=== PATIENT | male | born 1930 | race Caucasian/White ===

== ENCOUNTER 2018-05-05 18:03 | Emergency (ER) | payer MEDICARE ==
[~2018-05-05] VITALS: Ht 177.8 cm; Wt 73.0 kg
[~2018-05-05 18:03] MED LIST: ASPI-515 PO; CALC0.5C9 PO; CHOL100012 PO; EZET10TA18 PO; MIDO5TAB9 PO; NPH,100V INJ; NPH,100V5 INJ; TAMS-11 PO
[2018-05-05 18:20] VITALS: BP 101/47
--- NOTE | 2018-05-05 18:30 | NUR ---
Dr. Jurado at bedside to evaluate pt.
--- NOTE | 2018-05-05 18:41 | NUR ---
Labs drawn. EDT at bedside for EKG.
--- NOTE | 2018-05-05 18:50 | NUR ---
RECEIVED BS REPORT FROM ANNE-MARIE AUGUSTINE TO ASSUME PT. CARE. PT. RESTING ON GUNEY WITH EYES CLOSED. NADN. RESP EVEN, NON-LABORED. CONTINUOUS PULSE OX AND B/P MONITORS IN PLACE.
[2018-05-05 18:51] LABS: BASOPHILS # (AUTO) 0.04 x10^3/uL (0-0.1); BASOPHILS % (AUTO) 1 % (0-1); EOSINOPHILS # (AUTO) 0.21 x10^3/uL (0-0.4); EOSINOPHILS % (AUTO) 3 % (1-7); LYMPHOCYTES # (AUTO) 1.59 x10^3/uL (1-3.4); LYMPHOCYTES % (AUTO) 23 % (22-44); MD NO; MEAN CORPUSCULAR HEMOGLOBIN 32.4 pg (27.5-34.5); MEAN CORPUSCULAR HGB CONC 33.7 g/dL (33.2-36.2); MEAN CORPUSCULAR VOLUME 96.2 fL (81-97); MEAN PLATELET VOLUME 6.6 fL (7.4-10.4); MONOCYTES # (AUTO) 0.63 x10^3/uL (0.2-0.8); MONOCYTES % (AUTO) 9 % (2-9); NEUTROPHILS # (AUTO) 4.62 x10^3/uL (1.8-6.8); NEUTROPHILS % (AUTO) 65 % (42-75); PLATELET COUNT 203 x10^3/uL (130-400); RED BLOOD COUNT 3.12 x10^6/uL (4.38-5.82)
[2018-05-05 18:57] LABS: ANION GAP 13 mmol/L (5-15); CALCIUM 8.1 mg/dL (8.5-10.1); CHLORIDE 98 mmol/L (98-107); CREATININE 4.34 mg/dL (0.7-1.3)
== END 2018-05-05 19:59 | disposition left against medical advice (07) ==
LOC: ED 19:43
DX: F10.220 Alcohol dependence with intoxication, uncomplicated (principal); E11.22 Type 2 diabetes mellitus with diabetic chronic kidney disease; I12.0 Hypertensive chronic kidney disease with stage 5 chronic kidney disease or end stage renal disease; N18.6 End stage renal disease
CPT/HCPCS: 36415; 80048; 80307; 82040; 85025; 93005; 99284